=== PATIENT | female | born 1950 | race Caucasian/White ===

== ENCOUNTER → 2016-04-05 08:07 | Day surgery (SDC) | payer OTHER ==
[~2016-04-05 08:07] MED LIST: Acetaminophen TAB* 325 MG PO PRN; Buffered Lidocaine 1% SYR 3ML* 3 ML/SYR SYRINGE INTRADERM ONE; Buffered Lidocaine 1% SYR 3ML* 3 ML/SYR SYRINGE ONE; Cyclopentolate 1% OPTH.SOL* 2 ML BTL ONE; Flurbiprofen 0.03% OPTH.SOL* 2.5 ML BTL ONE; Lidocaine 1% MPF* 2 ML VIAL ONE; Lidocaine 2% EPI 1:200000 MPF* 20 ML VIAL ONE; Midazolam* 1 MG/ML 2 ML VIAL (2 MG) ONE; Neomycin/Polymy/Dex OPTH.SUSP* MAXITROL 0.1% 5 ML ONE; Phenylephrine 2.5% OPTH.SOL* 2 ML BTL ONE; Povidone Iodine 5% OPTH* 30 ML BTL ONE; Proparacaine 0.5% OPHTH.SOL* 15 ML BTL ONE; acetaZOLAMIDE TAB* 250 MG ONE
[2016-04-05 12:19] VITALS: BP 127/69
--- NOTE | 2016-04-05 14:45 | OP ---
DATE OF OPERATION: 04/05/16 - [facility] DATE OF : 48 SURGEON: Jakob Brody M.D. PREOPERATIVE DIAGNOSIS: Cataract, right eye. POSTOPERATIVE DIAGNOSIS: Cataract, right eye. OPERATIVE PROCEDURE: Phacoemulsification, right eye, with IOL. DESCRIPTION OF PROCEDURE: The patient was brought to the operating room after being given 1/2% Alcaine with epinephrine drops in the preoperative area. The eye was prepped and draped in the usual sterile fashion. Sterile drape and eyelid speculum were placed. Again, topical 1/2% Alcaine with epinephrine was given. A paracentesis incision was made at the 9 o'clock position with the No.75 blade. Clear cornea incision 2.2 x 2.2-mm was created at the 12 o'clock position starting at the anterior limbus using the 2.2-mm keratome. The anterior chamber was irrigated with 0.4 mL of 1% non-preservative intracameral lidocaine and filled with DisCoVisc. A capsulorrhexis was completed using the cystotome and the Utrata forceps. Hydrodissection was performed with balanced salt solution. The lens nucleus was removed with the Phacoemulsification handpiece without incident. Cortex was removed with the irrigation-aspiration handpiece. The capsular bag was re-inflated using DisCoVisc and an [id number] implant was inserted with the shooter. The irrigation-aspiration handpiece was used to remove all residual DisCoVisc. The eye was refilled with balanced salt solution and the wound checked and found to be watertight. Topical Maxitrol drops were given. [id number]/[facility] #: [id number] MTDD
== END | disposition home or self-care (01) ==
LOC: OREAST 08:07
PROVIDERS: ATTEND Specialist
DX: H25.811 Combined forms of age-related cataract, right eye (principal); H04.123 Dry eye syndrome of bilateral lacrimal glands; I10 Essential (primary) hypertension; E11.9 Type 2 diabetes mellitus without complications; Z79.84 Long term (current) use of oral hypoglycemic drugs
CPT/HCPCS: A9270-GY; J2250; V2632

== ENCOUNTER → 2016-04-12 07:22 | Day surgery (SDC) | payer OTHER ==
[~2016-04-12 07:22] MED LIST changes: +fentaNYL* 50 MCG/ML 2 ML VIAL (100 MCG VIAL) ONE
[2016-04-12 10:02] VITALS: BP 116/88
--- NOTE | 2016-04-12 23:39 | OP ---
DATE OF OPERATION: 04/12/16 - [facility] DATE OF : 48 SURGEON: Jakob Brody MD PREOPERATIVE DIAGNOSIS: Cataract, left eye. POSTOPERATIVE DIAGNOSIS: Cataract, left eye OPERATIVE PROCEDURE: Phacoemulsification, left eye with IOL. DESCRIPTION OF PROCEDURE: The patient was brought to the operating room after being given 1/2% Alcaine with epinephrine drops in the preoperative area. The eye was prepped and draped in the usual sterile fashion. Sterile drape and eyelid speculum were placed. Again, topical 1/2% Alcaine with epinephrine was given. A paracentesis incision was made at the 3 o'clock position with the No.75 blade. Clear cornea incision 2.2 x 2.2-mm was created at the 6 o'clock position starting at the anterior limbus using the 2.2-mm keratome. The anterior chamber was irrigated with 0.4 mL of 1% non-preservative intracameral lidocaine and filled with DisCoVisc. A capsulorrhexis was completed using the cystotome and the Utrata forceps. Hydrodissection was performed with balanced salt solution. The lens nucleus was removed with the Phacoemulsification handpiece without incident. Cortex was removed with the irrigation-aspiration handpiece. The capsular bag was re-inflated using DisCoVisc and an [id number] implant was inserted with the shooter. The irrigation-aspiration handpiece was used to remove all residual DisCoVisc. The eye was refilled with balanced salt solution and the wound checked and found to be watertight. Topical Maxitrol drops were given. [id number]/[facility] #: [id number] [address] [facility]
== END | disposition home or self-care (01) ==
LOC: OREAST 07:22
PROVIDERS: ATTEND Specialist
DX: H25.812 Combined forms of age-related cataract, left eye (principal); I10 Essential (primary) hypertension; E11.9 Type 2 diabetes mellitus without complications
CPT/HCPCS: A9270-GY; J2250; J3010; V2632

== ENCOUNTER 2018-02-23 10:56 | Emergency (ER) | payer MEDICARE, OTHER ==
[2018-02-23] MEDS ORDERED: Famotidine TAB* 20 MG PO ONE (11:17)
[2018-02-23] MEDS ORDERED: diPHENhydraMINE PO* 25 MG PO ONE (11:21)
[2018-02-23] MEDS ORDERED: Dexamethasone IV* 4 MG/ML 1 ML (4 MG) IM ONE (11:22)
--- OUTSIDE RECORDS SUMMARY | 2018-02-23 11:35 | XMS REPORT | Continuity of Care Document ---
:1950 External Reference #:[id number] Author Name Jakob Brody M.D. Address [address] [address] Care Team Providers Name Role Phone Vicky Cleaning M.D. Primary Care Physician Unavailable Payers Type Date Identification Numbers Payment Provider Subscriber Policy Number: [id number] Medicare - NGS Radha Oliva PayID: [id number] [address] [place] [address] Policy Number: [id number] [employer] Ppo/Pos/Epo/Nap Radha Oliva Group Name: [id number] [address] PayID: [id number] [place] [address] Advance Directives Description No Information Available Problems Date Description Provider Status Onset: Essential hypertension Active Onset: Type 2 diabetes mellitus Active Onset: Asthma Active Onset: Depressive disorder Active Onset: Psoriatic arthritis Active Onset: 03/21/2016 Combined form of senile cataract Jakob Brody M.D. Active Onset: 03/21/2016 Tear film insufficiency Jakob Brody M.D. Active Onset: Sleep apnea Active Onset: 04/06/2016 Presence of intraocular lens Jakob Brody M.D. Active Onset: 01/29/2018 Visual disturbance Jakob Brody M.D. Active Onset: 01/29/2018 Other secondary cataract, left eye Jakob Brody M.D. Active Onset: Arthritis Inactive Inactive: 03/21/2016 Family History Date Family Member(s) Problem(s) Comments Father Cataract Mother No Current Problems Social History Type Date Description Comments Sex Unknown Marital Status Single Occupation Benefits [employer] ([employer]) Work Status Full-Time Employment ETOH Use Occasionally consumes alcohol Tobacco Use Start: Unknown Patient has never smoked Recreational Drug Use Denies Drug Use Smoking Status Reviewed: 01/29/18 Patient has never smoked Allergies, Adverse Reactions, Alerts Date Description Reaction Status Severity Comments 03/21/2016 Tetracycline Active 03/21/2016 Lisinopril Active 03/27/2016 Cashews Active Medications Medication Date Status Form Strength Qnty SIG Indications Ordering Provider Oxybutynin / Active Tablets ER 10mg Take One Unknown Chloride ER 0000 24HR Tablet By Mouth Every Day Bisoprolol / Active Tablets 5mg Take 1 2 Unknown Fumarate 0000 Tablet By Mouth Once Daily Methotrexate / Active Tablets 2.5mg Take 10 Unknown 0000 Tablets By Mouth One Time Every 7 Days Cymbalta / Active Caps DR Part 30mg Take Unknown 0000 Three Capsules By Mouth Every Day Valsartan / Active Tablets 160mg Take One Unknown 0000 Tablet By Mouth Every Day Advair Diskus / Active Aerosol 100-50mcg/ Unknown 0000 Dose Proair HFA / Active Aerosol 108(90Base Unknown 0000 ) mcg/Act Metformin HCL / Active Tablets 500mg BiD Unknown 0000 Folic Acid / Active Capsules 5mg Unknown 0000 Remicade / Active Solution Rec 100mg Unknown 0000 Fish Oil / Active Capsules 1000mg Unknown 0000 Lamotrigine / Active Tablets 100mg Unknown 0000 Melatonin / Active Capsules 3mg x1 Unknown 0000 Prednisolone 03/27/ Hx Suspension 1% 15ml 1 drop Jakob J. Acetate 2017 - Right eye [place]leo, 2 times a M.D. 2018 day - 1 drop Left eye 3 times a day Ciprofloxacin 03/27/ Hx Solution 0.3% 10ml 1 drop Jakob J. HCL 2017 - Left eye Arleo, 3 times a M.D. 2018 day Ketorolac 03/27/ Hx Solution 0.4% 5ml 1 drop Jakob J. Tromethamine 2017 - Right eye Arleo, 2 times a M.D. 2018 day - 1 drop Left eye 3 times a day Immunizations Description No Information Available Vital Signs Description No Information Available Results Description No Information Available Procedures Date Code Description Status 04/12/2016 82882 Extracapsular Cataract Extraction W/Intraocular Lens Completed 04/06/2016 500 Systane Eye Drops 15 ML Completed 04/05/2016 16676 Cataract Surgery Complex Completed 03/27/2016 67216 Ophthalmic Biometry Completed 03/27/2016 29468 Ophthalmic Biometry Completed 03/27/2016 49969 Scanning Computerized Opthalmic Diagnostic Posterior Seg Completed Retina 03/27/2016 45917 Computerized Corneal Topography Completed 03/21/2016 29153 New Patient Comprehensive Exam Completed Encounters Type Date Location Provider Dx Diagnosis Office Visit 03/27/2016 Jakob Brody, Jakob Brody, H25.811 Combined forms of 9:45a , [place]. age-related cataract, right eye H25.812 Combined forms of age-related cataract, left eye E11.9 Type 2 diabetes mellitus without complications H04.123 Dry eye syndrome of bilateral lacrimal glands Plan of Treatment 01/29/2018 - Jakob Brody M.D.E11.9 Type 2 diabetes mellitus without complicationsComments:Smoking can increase the risk of developing or worsening any eye related disease, as well as affect your overall health. If you are a smoker, we strongly recommend that you quit.If you are not a smoker, we strongly recommend that you do not start. You have diabetes. I do not detect any changes in both of your retinas from diabetes at this time. Proper control of your diabetes is important for the health of your eyes. Changes in your eyes from diabetes can happen without symptoms, so it is important that you have your eyes examined. Dr. Brody has sent a report to your primary care doctor , lettingthem know there is no damage from the Diabetes in your eyes.Follow up: 1 Year Follow Up DIAG MR You can expect to have your eyes dilated at your next visit. If Dr. Brody orders any additional testing, it may require extra time. We recommend that you bring sunglasses, as dilation drops often make you light sensitive until they wear off. We always recommend you bring someone to drive you home if you are uncomfortable driving with your eyes dilated. If you have any questions before your next visit, feel free to call our office at .H26.492 Other secondary cataract, left eyeComments:There is clouding in the sac that holds your artificial lens in your left eye. When your vision bothers you, we will do a laser treatment here in the office to improve your vision.Z96.1 Presence of intraocular lensComments:The artificial lens implants in both eyes appear to be stable at this time.H04.123 Dry eye syndrome of bilateral lacrimal glandsComments:Both of your eyes appear to be dry. Use artificial tears as directed. You can use the tears more often if you are reading a book or are on the computer, as we tend to blink less, making our eyes dry out more.[facility] offers a few items in our optical department to help alleviate dry eye symptoms. Systane and Refresh are good brands of tears you can use. You can pick these up at any pharmacy and they do not require a prescription.H53.8 Other visual disturbances
--- NOTE | 2018-02-23 11:56 | ED ---
Skin Complaint - HPI Summary HPI Summary: This patient is a 67 year old female presenting to [facility] with a chief complaint of diffuse skin rash since yesterday. Patient states that last night she developed small spots and when she woke up this morning, she was covered with them. She notes that she started Bactrim 1 week ago for a recurring UTI. This is the first time shes had this medicine. The pain is rated 3/10 in severity. Symptoms aggravated by nothing. Symptoms alleviated by nothing. Patient additionally reports left side knee pain and left eye ecchymosis due to an unrelated mechanical fall. Patient denies difficulty swallowing or breathing. However, patient states that she may be able to feel her tongue becoming numb. - History of Current Complaint Chief Complaint: EDAllergicReaction Time Seen by Provider: 02/23/18 11:17 Stated Complaint: POSS ALLERGIC REACTION Hx Obtained From: Patient Onset/Duration: Started Days Ago, Still Present Skin Exposure Onset/Duration: Days Ago Timing: Constant Onset Severity: Moderate Pain Intensity: 3 Pain Scale Used: 0-10 Numeric Skin Location: Diffuse Character: Redness, Raised Aggravating Symptom(s): Nothing Alleviating Symptom(s): Nothing Associated Signs & Symptoms: Negative - difficulty breathing or swallowing - Allergy/Home Medications Allergies/Adverse Reactions: Allergies Allergy/AdvReac Type Severity Reaction Status Date / Time Sulfa (Sulfonamide Allergy Intermediate Rash Verified 02/23/18 11:25 Antibiotics) MS Lisinopril [Lisinopril] AdvReac Intermediate Constant Verified 04/12/16 07:43 Coughing MS Tetracycline AdvReac Intermediate Rash Verified 04/12/16 07:43 CASHEWS Allergy Rash Uncoded 04/12/16 07:43 PMH/Surg Hx/FS Hx/Imm Hx Previously Healthy: No Endocrine/Hematology History: Reports: Hx Diabetes - TYPE 2 Cardiovascular History: Reports: Hx Hypertension - CONTROL WITH MEDS Respiratory History: Reports: Hx Asthma - USES INHALER, Hx Sleep Apnea - current CPAP user History: Reports: Other Problems/Disorders - INCONTINENCE CONTROL WITH MEDICATION Musculoskeletal History: Reports: Hx Arthritis - osteoarthritis & psoratic- getting Remicade infusions since 03/2013, Other Musculoskeletal History - lower back disc problems Sensory History: Reports: Hx Cataracts - BILATERAL, Hx Contacts or Glasses - GLASSES Denies: Hx Hearing Aid Opthamlomology History: Reports: Hx Cataracts - BILATERAL, Hx Contacts or Glasses - GLASSES Psychiatric History: Reports: Hx Anxiety - CONTROL WITH MEDS, Hx Depression - CONTROL WITH MEDS - Surgical History Surgery Procedure, Year, and Place: Right foot surgery x 1 1993;. Arthroscopic surgery both knees,. bilateral knee replacments 2003 and 2007 ([facility]) Hx Anesthesia Reactions: No Infectious Disease History: No Infectious Disease History: Denies: Traveled Outside the [place] in Last 30 Days - Family History Known Family History: Positive: Hypertension - Social History Alcohol Use: Occasionally Alcohol Amount: WINE Hx Substance Use: No Substance Use Type: Reports: None Hx Tobacco Use: Yes Smoking Status (MU): Former Smoker Type: Cigarettes Have You Smoked in the Last Year: No Review of Systems Negative: Fever ENT: Negative - difficulty swallowing Negative: Shortness Of Breath Positive: Rash All Other Systems Reviewed And Are Negative: Yes Physical Exam - Summary Physical Exam Summary: Appearance: Well appearing, no pain distress Skin: Diffuse erythematous macular rash without targeted lesions and rash does target palm. Head/face: normal Eyes: EOMI, ARTUR ENT: No lip, tongue, pharyngeal edema, no lesions Neck: supple, non-tender Respiratory: CTA, breath sounds present Cardiovascular: RRR, pulses symmetrical Abdomen: non-tender, soft Bowel Sounds: present Musculoskeletal: normal, strength/ROM intact Neuro: normal, sensory motor intact, A&Ox3 Triage Information Reviewed: Yes Vital Signs On Initial Exam: Initial Vitals Temp Pulse Resp BP Pulse Ox 98.8 F 82 18 120/88 94 02/23/18 11:08 02/23/18 11:08 02/23/18 11:08 02/23/18 11:08 02/23/18 11:08 Vital Signs Reviewed: Yes Diagnostics - Vital Signs Vital Signs Temp Pulse Resp BP Pulse Ox 02/23/18 11:08 98.8 F 82 18 120/88 94 - Laboratory Lab Statement: Any lab studies that have been ordered have been reviewed, and results considered in the medical decision making process. Course/Dx - Course Course Of Treatment: Nurse's notes reviewed. Patient on Bactrim for UTI now with diffuse rash. No systemic symptoms otherwise. No oropharyngeal lesions. No eye or vaginal symptoms. Treated for allergy here, Bactrim discontinued. Bactrim added to allergy list. Follow-up with primary care physician. - Differential Diagnoses - Skin Complaint Differential Diagnoses: Other - Erythremia multiform minor, erythema multiform major, drug rash, simple allergy. - Diagnoses Provider Diagnoses: Allergic drug rash, Drug allergy Discharge - Sign-Out/Discharge Documenting (check all that apply): Patient Departure - Discharge Plan Condition: Improved Disposition: HOME Prescriptions: Famotidine TAB* [Pepcid 20 MG TAB*] 20 mg PO BID PRN #10 tab PRN Reason: allergy symptoms or rash Patient Education Materials: Antibiotic Medication Allergy (ED) Referrals: Vicky Cleaning MD [Primary Care Provider] - Additional Instructions: Discontinue Bactrim and no longer take any type of sulfa medication. Return with lesions in the mouth, eyes or vaginal area. Return with difficulty breathing, lip or tongue swelling, worse or other concernsas discussed. Informed your doctor of sulfa medication allergy. Follow-up with your doctor on Sunday. - Billing Disposition and Condition Condition: IMPROVED Disposition: Home - Attestation Statements Document Initiated by Juju: Yes Documenting Scribe: Sherie Gardiner Provider For Whom Juju is Documenting (Include Credential): Marc Mejia MD Scribe Attestation: Sherie Kahn scraureed for Marc Mejia MD on 02/23/18 at 1514. Scribe Documentation Reviewed: Yes Provider Attestation: The documentation as recorded by the Sherie espinal accurately reflects the service I personally performed and the decisions made by Marc santa MD Status of Scribluci Document: Viewed
[2018-02-23 12:00] VITALS: BP 120/82
== END 2018-02-23 11:59 | disposition home or self-care (01) ==
LOC: ED 10:56
DX: L27.0 Generalized skin eruption due to drugs and medicaments taken internally (principal); T37.0X5A Adverse effect of sulfonamides, initial encounter; Y92.9 Unspecified place or not applicable; N39.0 Urinary tract infection, site not specified; E11.9 Type 2 diabetes mellitus without complications; I10 Essential (primary) hypertension; J45.909 Unspecified asthma, uncomplicated; Z87.891 Personal history of nicotine dependence
CPT/HCPCS: 96372; 99282; A9270-GY; J1100

== ENCOUNTER 2018-11-12 15:56 | Emergency (ER) | payer MEDICARE, OTHER ==
[2018-11-12 16:12] VITALS: BP 165/85
[2018-11-12] MEDS ORDERED: Cephalexin CAP* 500 MG PO ONE (17:00)
--- NOTE | 2018-11-12 17:01 | UC ---
Complaint Female HPI - HPI Summary HPI Summary: 68 yo female with dysuria/urgency/frequency x 1 weeks no back pain no fever hx of UTIs - History Of Current Complaint Chief Complaint: UCGU Stated Complaint: UTI Time Seen by Provider: 11/12/18 16:54 Hx Obtained From: Patient Onset/Duration: Gradual Onset Timing: Constant Severity Initially: Mild Severity Currently: Mild Pain Intensity: 0 Pain Scale Used: 0-10 Numeric Character: Burning Aggravating Factor(s): Urination Associated Signs And Symptoms: Negative: Fever, Back Pain, Vaginal Bleeding/ Discharge, Vaginal Discharge, Nausea, Vomiting(# Of Episodes =), Genital Swelling, Genital Blisters, Retained Foregin Body (Specify) - Allergies/Home Medications Allergies/Adverse Reactions: Allergies Allergy/AdvReac Type Severity Reaction Status Date / Time Sulfa (Sulfonamide Allergy Intermediate Rash Verified 11/12/18 16:13 Antibiotics) lisinopril Allergy Coughing Verified 11/12/18 16:13 Tetracyclines Allergy Rash Verified 11/12/18 16:13 PMH/Surg Hx/FS Hx/Imm Hx Previously Healthy: Yes Endocrine History: Diabetes Cardiovascular History: Hypertension Respiratory History: Asthma - Surgical History Surgical History: Yes Surgery Procedure, Year, and Place: Right foot surgery x 1 1993;. Arthroscopic surgery both knees,. bilateral knee replacments 2003 and 2007 ([facility]) - Family History Known Family History: Positive: Hypertension - Social History Alcohol Use: Occasionally Alcohol Amount: WINE Substance Use Type: None Smoking Status (MU): Former Smoker Type: Cigarettes Have You Smoked in the Last Year: No When Did the Patient Quit Smoking/Using Tobacco: 40+ YEARS AGO Review of Systems All Other Systems Reviewed And Are Negative: Yes Constitutional: Positive: Negative Skin: Positive: Negative Eyes: Positive: Negative ENT: Positive: Negative Respiratory: Positive: Negative Cardiovascular: Positive: Negative Gastrointestinal: Positive: Negative Genitourinary: Positive: Dysuria, Frequency, Urgency Motor: Positive: Negative Neurovascular: Positive: Negative Musculoskeletal: Positive: Negative Neurological: Positive: Negative Psychological: Positive: Negative Physical Exam Triage Information Reviewed: Yes Appearance: Well-Appearing, No Pain Distress, Well-Nourished Vital Signs: Initial Vital Signs Temp 98.8 F 11/12/18 16:07 Pulse 71 11/12/18 16:07 Resp 20 11/12/18 16:07 BP 165/85 11/12/18 16:07 Pulse Ox 98 11/12/18 16:07 Vital Signs Reviewed: Yes Eyes: Positive: Conjunctiva Clear ENT: Positive: Hearing grossly normal. Negative: Nasal congestion, Nasal drainage, Trismus, Muffled voice, Hoarse voice Neck: Positive: Supple, Nontender, No Lymphadenopathy Respiratory: Positive: Lungs clear, Normal breath sounds, No respiratory distress, No accessory muscle use Cardiovascular: Positive: RRR, No Murmur Abdomen Description: Positive: Nontender, No Organomegaly. Negative: CVA Tenderness (R), CVA Tenderness (L) Bowel Sounds: Positive: Present Musculoskeletal: Positive: ROM Intact, No Edema Neurological: Positive: Alert, Muscle Tone Normal Psychological Exam: Normal Skin Exam: Normal Diagnostics - Laboratory Lab Results: UA ++ pro, + blood, tr leuks Complaint Female Dx - Differential Dx/Diagnosis Provider Diagnosis: Dysuria Discharge ED - Sign-Out/Discharge Documenting (check all that apply): Patient Departure All imaging exams completed and their final reports reviewed: No Studies - Discharge Plan Condition: Stable Disposition: HOME Prescriptions: Cephalexin CAP* [Keflex CAP*] 500 mg PO BID #13 cap Patient Education Materials: Urinary Tract Infection in Women (ED) Referrals: Vicky Cleaning MD [Primary Care Provider] - 3 Days (if not better) Additional Instructions: I suspect you have a UTI a culture is pending - Billing Disposition and Condition Condition: STABLE Disposition: Home
== END 2018-11-12 17:15 | disposition home or self-care (01) ==
LOC: UCEAST 15:56
DX: Z88.1 Allergy status to other antibiotic agents (principal); Z88.2 Allergy status to sulfonamides; E11.9 Type 2 diabetes mellitus without complications; I10 Essential (primary) hypertension; Z87.891 Personal history of nicotine dependence
CPT/HCPCS: 81003; 87086; 99212; A9270-GY; G0463